=== PATIENT | male | born 1950 | race Caucasian/White ===

== ENCOUNTER 2019-09-30 13:32 | Emergency (ER) | payer OTHER ==
[2019-09-30 13:49] VITALS: BP 141/76; PULSE 94
[2019-09-30] MEDS ORDERED: Albuterol/Ipratropium 3.0-0.5 MG/3 ML Neb Soln NEB ONE (14:20)
--- NOTE | 2019-09-30 14:45 | CR ---
CHEST: 2 view CLINICAL HISTORY:Dyspnea COMPARISON:2016 FINDINGS: The heart size, pulmonary vascularity and hilar structures are normal. There has been previous sternotomy. There are atherosclerotic changes in the aorta. No infiltrate effusion or pneumothorax is seen. Lungs are hyperaerated IMPRESSION: No acute cardiopulmonary process. Emphysematous changes
--- NOTE | 2019-09-30 14:46 | EDM.PDOC ---
ED HPI GENERAL MEDICAL PROBLEM - General Chief Complaint: Respiratory Problem Stated Complaint: COUGH,SOB,WHEEZING Time Seen by Provider: 09/30/19 14:00 Source of Information: Reports: Patient History Limitations: Reports: No Limitations - History of Present Illness INITIAL COMMENTS - FREE TEXT/NARRATIVE: 69-year-old male with chronic COPD and emphysema, continues to smoke with increasing shortness of breath over the past 3 days. He is taking his nebulizers and inhalers but it is not helping as much as it typically does. He occasionally gets flareups like this that needs steroids. No chest pain, no fevers or chills, some scant sputum at times. He has been self isolating with his at home to avoid COVID infections. [facility] and [facility] sent him to the emergency room. Onset: Gradual Duration: Day(s): (3 to 4 days) Associated Symptoms: Reports: Cough, Shortness of Breath. Denies: Chest Pain, Fever/Chills - Related Data Allergies Allergy/AdvReac Type Severity Reaction Status Date / Time pregabalin [From Lyrica] Allergy Intermediate Pain Verified 09/30/19 13:50 lisinopril AdvReac Intermediate Cough Verified 09/30/19 13:50 Home Meds: Home Meds Albuterol/Ipratropium [Combivent Respimat] 1 puff INH QID PRN 08/23/13 [History] Furosemide 20 mg PO DAILY 08/23/13 [History] Losartan Potassium 25 mg PO DAILY 08/23/13 [History] Simvastatin 5 mg PO DAILY 08/23/13 [History] Clopidogrel [Plavix] 75 mg PO DAILY 05/05/14 [History] Budesonide [Pulmicort] 1 dose INH BID 06/16/15 [History] metFORMIN HCl [Metformin HCl] 500 mg PO QID 11/11/16 [History] Albuterol/Ipratropium [Combivent Respimat] 1 puff INH QID PRN 09/30/19 [History] Aspirin [Aspir 81] 1 tab PO DAILY 09/30/19 [History] Ipratropium [Atrovent HFA] 1 dose INH QID 09/30/19 [History] glipiZIDE [Glucotrol XL] 10 mg PO BID 09/30/19 [History] Past Medical History HEENT History: Reports: Hard of Hearing, Other (See Below) Other HEENT History: All teeth pulled Cardiovascular History: Reports: Arrhythmia, CAD, Heart Failure, High Cholesterol, Prior Cardiac Arrest, Stents Other Cardiovascular History: Been cardioverted Respiratory History: Reports: Asthma, Sleep Apnea, Other (See Below) Other Respiratory History: uses cpap Gastrointestinal History: Reports: GERD Musculoskeletal History: Reports: Back Pain, Chronic Other Musculoskeletal History: three bulging discs Neurological History: Reports: CVA Psychiatric History: Reports: Depression, PTSD Endocrine/Metabolic History: Reports: Diabetes, Type II - Infectious Disease History Infectious Disease History: Reports: Chicken Pox, Measles, Mumps - Past Surgical History Cardiovascular Surgical History: Reports: Coronary Artery Bypass GI Surgical History: Reports: Appendectomy, Colon, Colonoscopy, EGD, Hernia Repair/Other Social & Family History - Tobacco Use Smoking Status *Q: Current Some Day Smoker Years of Tobacco use: 50 Packs/Tins Daily: 0.5 - Caffeine Use Caffeine Use: Reports: Coffee - Recreational Drug Use Recreational Drug Use: No ED ROS GENERAL - Review of Systems Review Of Systems: See Below Constitutional: Reports: Malaise. Denies: Fever, Chills HEENT: Denies: Ear Pain, Throat Pain Respiratory: Reports: Shortness of Breath, Cough, Sputum Cardiovascular: Denies: Chest Pain GI/Abdominal: Denies: Abdominal Pain, Nausea, Vomiting Skin: Reports: No Symptoms Neurological: Reports: Weakness. Denies: Headache Psychiatric: Reports: No Symptoms ED EXAM, GENERAL - Physical Exam Exam: See Below Exam Limited By: No Limitations General Appearance: Alert, No Apparent Distress Throat/Mouth: Normal Inspection Head: Atraumatic Respiratory/Chest: No Respiratory Distress, Wheezing (Diffuse expiratory wheezing is heard especially when he is coughing, he has good air movement to the bases) Cardiovascular: Regular Rate, Rhythm GI/Abdominal: Other (Nontender, obese) Extremities: Normal Inspection, No Pedal Edema Neurological: Alert, Oriented Psychiatric: Normal Affect, Normal Mood Skin Exam: Warm, Dry Course - Vital Signs Last Recorded V/S: Last Vital Signs Temp 98.8 F 09/30/19 14:08 Pulse 94 09/30/19 14:08 Resp 18 09/30/19 14:08 BP 141/76 H 09/30/19 14:08 Pulse Ox 96 09/30/19 14:08 - Orders/Labs/Meds Orders: Active Orders 24 hr Category Date Time Status RT Aerosol Therapy [RC] ASDIRECTED Care 09/30/19 14:21 Active Meds: Medications Discontinued Medications Generic Name Dose Route Start Last Admin Trade Name Emiliano PRN Reason Stop Dose Admin Albuterol/Ipratropium 3 ml 09/30/19 14:20 09/30/19 14:25 Duoneb 3.0-0.5 Mg/3 Ml NEB 09/30/19 14:21 3 ml ONETIME ONE Administration Methylprednisolone Sodium Succinate 125 mg 09/30/19 14:56 09/30/19 15:01 Solu-Medrol IVPUSH 09/30/19 14:57 125 mg ONETIME ONE Administration - Re-Assessments/Exams Free Text/Narrative Re-Assessment/Exam: 09/30/19 14:46 A DuoNeb was given and then a two-view chest x-ray obtained. The two-view chest x-ray showed stability, no fluid, cardiomegaly or effusions. There is no infiltrate. A Solu-Medrol IV dose was given at 125 mg, this will be followed by 60 mg of prednisone daily for the next 5 days similar to his treatment in the past. I do not see an indication for antibiotics. He will return in the next 48 to 72 hours if not improving satisfactorily. 09/30/19 14:51 Take 6 pills of prednisone each morning with your first meal for the next 5 days. Continue your other medications as prescribed, and continue to try to avoid smoking. Return if worsening despite treatment. Departure - Departure Time of Disposition: 15:16 Disposition: Home, Self-Care 01 Clinical Impression: Acute exacerbation of chronic obstructive pulmonary disease (COPD) - Discharge Information Instructions: Chronic Obstructive Pulmonary Disease, [id number] Referrals: Funmilayo Lopez MD [Primary Care Provider] - Forms: ED Department Discharge Care Plan Goals: Continue your current medications, and take 6 pills of prednisone daily with your first meal for the next 5 days. Increase activity as tolerated and try to continue to reduce your smoking. Return anytime if worsening despite treatment. Sepsis Event Note (ED) - Evaluation Sepsis Screening Result: No Definite Risk - My Orders Last 24 Hours: My Active Orders 09/30/19 14:21 RT Aerosol Therapy [RC] ASDIRECTED - Assessment/Plan Last 24 Hours: My Active Orders 09/30/19 14:21 RT Aerosol Therapy [RC] ASDIRECTED
[2019-09-30] MEDS ORDERED: methylPREDNISolone Sodium Succinate 125 MG/2 ML SDV IVPUSH ONE (14:56)
== END 2019-09-30 15:15 | disposition home or self-care (01) ==
LOC: JP.ED 13:32
DX: J44.1 Chronic obstructive pulmonary disease with (acute) exacerbation (principal); E11.9 Type 2 diabetes mellitus without complications; F32.9 Major depressive disorder, single episode, unspecified; I25.10 Atherosclerotic heart disease of native coronary artery without angina pectoris; E78.00 Pure hypercholesterolemia, unspecified; I50.9 Heart failure, unspecified; J45.909 Unspecified asthma, uncomplicated; F17.210 Nicotine dependence, cigarettes, uncomplicated; Z79.899 Other long term (current) drug therapy; Z79.82 Long term (current) use of aspirin; Z79.84 Long term (current) use of oral hypoglycemic drugs; Z79.02 Long term (current) use of antithrombotics/antiplatelets; Z86.73 Personal history of transient ischemic attack (TIA), and cerebral infarction without residual deficits; Z88.8 Allergy status to other drugs, medicaments and biological substances; Z95.5 Presence of coronary angioplasty implant and graft
CPT/HCPCS: 71046; 94640; 96374; 99285; J2930; 99284; J7620-GY

== ENCOUNTER 2020-04-09 12:04 | Emergency (ER) | payer MEDICARE, OTHER ==
[2020-04-09 12:25] VITALS: BP 148/82; PULSE 94
[2020-04-09] MEDS ORDERED: methylPREDNISolone Sodium Succinate 40 MG/1 ML SDV IM ONE (12:53)
--- NOTE | 2020-04-09 12:58 | EDM.PDOC ---
ED HPI GENERAL MEDICAL PROBLEM - General Chief Complaint: Respiratory Problem Stated Complaint: BREATHING ISSUES Time Seen by Provider: 04/09/20 12:47 Source of Information: Reports: Patient, RN Notes Reviewed History Limitations: Reports: No Limitations - History of Present Illness INITIAL COMMENTS - FREE TEXT/NARRATIVE: 69-year-old gentleman presents emergency department with a complaint of shortness of breath, he has known history of chronic obstructive pulmonary disease with an asthmatic component. He states he has been feeling tired for about a week initially felt better and then today it got progressively worse. Has not had no fevers he just feels tight in the chest has a cough without any sputum production, he states his breathing treatments have helped but it only lasts for an hour or so, states he gets something like this about once a year in the winter - Related Data Allergies Allergy/AdvReac Type Severity Reaction Status Date / Time pregabalin [From Lyrica] Allergy Intermediate Pain Verified 04/09/20 12:27 lisinopril AdvReac Intermediate Cough Verified 04/09/20 12:27 Home Meds: Home Meds Furosemide 20 mg PO DAILY 08/23/13 [History] Losartan Potassium 25 mg PO DAILY 08/23/13 [History] Simvastatin 5 mg PO DAILY 08/23/13 [History] Clopidogrel [Plavix] 75 mg PO DAILY 05/05/14 [History] metFORMIN HCl [Metformin HCl] 500 mg PO QID 11/11/16 [History] Albuterol/Ipratropium [Combivent Respimat] 1 puff INH QID PRN 09/30/19 [History] Aspirin [Aspir 81] 1 tab PO DAILY 09/30/19 [History] glipiZIDE [Glucotrol XL] 10 mg PO BID 09/30/19 [History] Budesonide/Formoterol [Symbicort 160-4.5 MCG] 2 inh INH BID 04/09/20 [History] Past Medical History HEENT History: Reports: Hard of Hearing, Other (See Below) Other HEENT History: All teeth pulled Cardiovascular History: Reports: Arrhythmia, CAD, Heart Failure, High Cholesterol, Prior Cardiac Arrest, Stents Other Cardiovascular History: Been cardioverted Respiratory History: Reports: Asthma, Sleep Apnea, Other (See Below) Other Respiratory History: uses cpap Gastrointestinal History: Reports: GERD Musculoskeletal History: Reports: Back Pain, Chronic Other Musculoskeletal History: three bulging discs Neurological History: Reports: CVA, Neuropathy, Diabetic Psychiatric History: Reports: Depression, PTSD Endocrine/Metabolic History: Reports: Diabetes, Type II - Infectious Disease History Infectious Disease History: Reports: Chicken Pox, Measles, Mumps - Past Surgical History Cardiovascular Surgical History: Reports: Coronary Artery Bypass GI Surgical History: Reports: Appendectomy, Colon, Colonoscopy, EGD, Hernia Repair/Other Other GI Surgeries/Procedures: nicked bowel Social & Family History - Tobacco Use Tobacco Use Status *Q: Former Tobacco User Years of Tobacco use: 54 Used Tobacco, but Quit: Yes Month/Year Tobacco Last Used: 04/08/2020 - Caffeine Use Caffeine Use: Reports: Coffee - Recreational Drug Use Recreational Drug Use: No ED ROS GENERAL - Review of Systems Review Of Systems: See Below Constitutional: Denies: Fever, Diaphoresis HEENT: Reports: No Symptoms Respiratory: Reports: Shortness of Breath, Cough. Denies: Sputum Cardiovascular: Reports: Dyspnea on Exertion. Denies: Chest Pain GI/Abdominal: Reports: No Symptoms ED EXAM, GENERAL - Physical Exam Exam: See Below Exam Limited By: No Limitations General Appearance: Alert, No Apparent Distress Head: Atraumatic, Normocephalic Neck: Normal Inspection, Supple, Non-Tender, Full Range of Motion Respiratory/Chest: No Accessory Muscle Use, Decreased Breath Sounds, Wheezing Cardiovascular: Regular Rate, Rhythm, No Murmur GI/Abdominal: Soft, Non-Tender Back Exam: Normal Inspection, Full Range of Motion. No: CVA Tenderness (R), CVA Tenderness (L) Extremities: No Pedal Edema Course - Vital Signs Last Recorded V/S: Last Vital Signs Temp 98.2 F 04/09/20 12:40 Pulse 94 04/09/20 12:40 Resp 20 04/09/20 12:40 BP 148/82 H 04/09/20 12:40 Pulse Ox 95 04/09/20 12:40 - Orders/Labs/Meds Meds: Medications Discontinued Medications Generic Name Dose Route Start Last Admin Trade Name Freq PRN Reason Stop Dose Admin Methylprednisolone Sodium Succinate 40 mg 04/09/20 12:53 Solu-Medrol IM 04/09/20 12:54 ONETIME ONE Departure - Departure Time of Disposition: 12:57 Disposition: Home, Self-Care 01 Condition: Fair Clinical Impression: Acute exacerbation of chronic obstructive pulmonary disease (COPD) - Discharge Information Instructions: Chronic Obstructive Pulmonary Disease Exacerbation, [id number] Referrals: Funmilayo Lopez MD [Primary Care Provider] - Additional Instructions: Take full course of antibiotics start today, start your prednisone tomorrow this will continue for 10 days, please followup with your primary care provider in 5-7 days if not better, please call return to the emergency department with worsening of symptoms., Sepsis Event Note (ED) - Evaluation Sepsis Screening Result: No Definite Risk - Focused Exam Vital Signs: Vital Signs Temp Pulse Resp BP Pulse Ox 04/09/20 12:40 98.2 F 94 20 148/82 H 95 04/09/20 12:24 98.2 F 94 20 148/82 H 95 - Assessment/Plan Plan: Assessment Acuity = acute Site and laterality = COPD exacerbation Etiology = unknown Manifestations = cough, dyspnea Location of injury = Home Lab values = none Plan Elected to treat empirically was given 40 mg Solu-Medrol IM x1 followed by a taper dose of prednisone starting tomorrow 40 mg for 3 days 30 mg for 3 days 20 for 2 days and 10 for 2 days, prescription written also for azithromycin 5-day course follow-up primary care 5 to 7 days if not better This note was dictated using [employer] voice recognition software please call with any questions on syntax or grammar.
== END 2020-04-09 13:12 | disposition home or self-care (01) ==
LOC: JP.ED 12:04
DX: J44.1 Chronic obstructive pulmonary disease with (acute) exacerbation (principal); I25.10 Atherosclerotic heart disease of native coronary artery without angina pectoris; I50.9 Heart failure, unspecified; E78.00 Pure hypercholesterolemia, unspecified; K21.9 Gastro-esophageal reflux disease without esophagitis; E11.40 Type 2 diabetes mellitus with diabetic neuropathy, unspecified; Z86.73 Personal history of transient ischemic attack (TIA), and cerebral infarction without residual deficits; Z87.891 Personal history of nicotine dependence; Z88.8 Allergy status to other drugs, medicaments and biological substances; Z79.82 Long term (current) use of aspirin; Z79.899 Other long term (current) drug therapy; Z79.02 Long term (current) use of antithrombotics/antiplatelets
CPT/HCPCS: 96372; 99283; 99284; J2920

== ENCOUNTER 2020-10-09 11:17 | Emergency (ER) | payer OTHER, MEDICARE ==
[2020-10-09 11:32] VITALS: BP 137/80; PULSE 97
[2020-10-09] MEDS ORDERED: methylPREDNISolone Sodium Succinate 40 MG/1 ML SDV IM ONE (11:36)
--- NOTE | 2020-10-09 11:42 | EDM.PDOC ---
ED HPI GENERAL MEDICAL PROBLEM - General Chief Complaint: Respiratory Problem Stated Complaint: ASTHMA ATTACK Time Seen by Provider: 10/09/20 11:30 Source of Information: Reports: Patient, Old Records, RN History Limitations: Reports: No Limitations - History of Present Illness INITIAL COMMENTS - FREE TEXT/NARRATIVE: Patient comes in with what he feels is an exacerbation of his COPD. He feels this started yesterday after walking his dog. He has done well to stay inside the house with the recent environmental smoke concerns. He noted it was more clear yesterday and has been about a week since he had been outside. He states last night he got about "2 minutes" of sleep. He has been uncomfortable coughing cannot get anything up. He has a chronic history of COPD. He knows his symptoms well and what works for him. He does have a emergent Z-Tavo at home but did not feel this was appropriate as he did not feel like it was a bacterial source. He has been using his nebulizers at home which is given him about 20 minutes of relief. 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: Other (see below) (Nebulizers and COPD medications) - Related Data Allergies Allergy/AdvReac Type Severity Reaction Status Date / Time pregabalin [From Lyrica] Allergy Intermediate Pain Verified 04/09/20 12:27 lisinopril AdvReac Intermediate Cough Verified 04/09/20 12:27 Home Meds: Home Meds Furosemide 20 mg PO DAILY 08/23/13 [History] Losartan Potassium 25 mg PO DAILY 08/23/13 [History] Simvastatin 5 mg PO DAILY 08/23/13 [History] Clopidogrel [Plavix] 75 mg PO DAILY 05/05/14 [History] metFORMIN HCl [Metformin HCl] 500 mg PO QID 11/11/16 [History] Albuterol/Ipratropium [Combivent Respimat] 1 puff INH QID PRN 09/30/19 [History] Aspirin [Aspir 81] 1 tab PO DAILY 09/30/19 [History] glipiZIDE [Glucotrol XL] 10 mg PO BID 09/30/19 [History] Budesonide/Formoterol [Symbicort 160-4.5 MCG] 2 inh INH BID 04/09/20 [History] Past Medical History HEENT History: Reports: Hard of Hearing, Other (See Below) Other HEENT History: All teeth pulled Cardiovascular History: Reports: Arrhythmia, CAD, Heart Failure, High Cholesterol, Prior Cardiac Arrest, Stents Other Cardiovascular History: Been cardioverted Respiratory History: Reports: Asthma, Sleep Apnea, Other (See Below) Other Respiratory History: uses cpap Gastrointestinal History: Reports: GERD Musculoskeletal History: Reports: Back Pain, Chronic Other Musculoskeletal History: three bulging discs Neurological History: Reports: CVA, Neuropathy, Diabetic Psychiatric History: Reports: Depression, PTSD Endocrine/Metabolic History: Reports: Diabetes, Type II - Infectious Disease History Infectious Disease History: Reports: Chicken Pox, Measles, Mumps - Past Surgical History Cardiovascular Surgical History: Reports: Coronary Artery Bypass GI Surgical History: Reports: Appendectomy, Colon, Colonoscopy, EGD, Hernia Repair/Other Other GI Surgeries/Procedures: nicked bowel Social & Family History - Tobacco Use Tobacco Use Status *Q: Current Every Day Tobacco User Years of Tobacco use: 60 Packs/Tins Daily: 0.5 - Caffeine Use Caffeine Use: Reports: Coffee - Recreational Drug Use Recreational Drug Use: No ED ROS GENERAL - Review of Systems Review Of Systems: See Below Constitutional: Reports: Fatigue HEENT: Reports: No Symptoms Respiratory: Reports: Shortness of Breath, Cough Cardiovascular: Reports: No Symptoms Endocrine: Reports: No Symptoms GI/Abdominal: Reports: No Symptoms : Reports: No Symptoms Musculoskeletal: Reports: No Symptoms Skin: Reports: No Symptoms Neurological: Reports: No Symptoms Psychiatric: Reports: No Symptoms ED EXAM, GENERAL - Physical Exam Exam: See Below Exam Limited By: No Limitations General Appearance: Alert, Moderate Distress Respiratory/Chest: Respiratory Distress. No: No Respiratory Distress Cardiovascular: Normal Peripheral Pulses, Regular Rate, Rhythm, No Edema Extremities: Normal Inspection, Normal Range of Motion Neurological: Alert, Oriented, CN II-XII Intact, Normal Cognition Psychiatric: Normal Affect, Normal Mood Course - Vital Signs Last Recorded V/S: Last Vital Signs Temp 36.4 C 10/09/20 11:33 Pulse 97 10/09/20 11:33 Resp 19 10/09/20 11:33 BP 137/80 10/09/20 11:33 Pulse Ox 94 L 10/09/20 11:33 - Orders/Labs/Meds Meds: Medications Discontinued Medications Generic Name Dose Route Start Last Admin Trade Name Emiliano PRAtul Reason Stop Dose Admin Methylprednisolone Sodium Succinate 40 mg 10/09/20 11:36 10/09/20 11:43 Methylprednisolone Sodium Succinate 40 Mg/1 Ml Sdv IM 10/09/20 11:37 40 mg ONETIME ONE Administration Solu-Medrol given IM as this has worked in the past for him. - Re-Assessments/Exams Free Text/Narrative Re-Assessment/Exam: 10/09/20 11:56 Patient states improvement with Solu-Medrol. He notes decreased swelling and ease of breathing. Will provide prednisone taper to be utilized over the next 10 days. If in the next 2 to 3 days he has not significantly better or showing improvement he is to return to the clinic or ER for further evaluation. He is instructed if he starts showing signs of infection including changes in the color of his sputum he is to start his Z-Tavo that he has at home. Departure - Departure Time of Disposition: 12:04 Disposition: Home, Self-Care 01 Condition: Fair Clinical Impression: Acute exacerbation of chronic obstructive pulmonary disease (COPD) - Discharge Information Instructions: Chronic Obstructive Pulmonary Disease, [id number] Referrals: PCP,None [Primary Care Provider] - Forms: ED Department Discharge Additional Instructions: Start Prednisone taper in AM. If not better or improving over next 2-3 days return to clinic/ER for further evaluation. Sepsis Event Note (ED) - Evaluation Sepsis Screening Result: No Definite Risk - Focused Exam Vital Signs: Vital Signs Temp Pulse Resp BP Pulse Ox 10/09/20 11:33 36.4 C 97 19 137/80 94 L 10/09/20 11:30 36.4 C 97 19 137/80 94 L - Problem List Review Problem List Initiated/Reviewed/Updated: Yes - Assessment/Plan Assessment:: Acute exacerbation of COPD Plan: Solu-Medrol provided at visit with improvement noted by patient. Prednisone taper over next 10 days. Plan for patient to return to clinic if noted improvement does not happen over the next 2 to 3 days or he has a change in his status. Patient to follow-up with primary care provider in the next 5 to 7 days
== END 2020-10-09 12:05 | disposition home or self-care (01) ==
LOC: JP.ED 11:17
DX: J44.1 Chronic obstructive pulmonary disease with (acute) exacerbation (principal); I25.10 Atherosclerotic heart disease of native coronary artery without angina pectoris; I11.0 Hypertensive heart disease with heart failure; I50.9 Heart failure, unspecified; E78.00 Pure hypercholesterolemia, unspecified; E11.40 Type 2 diabetes mellitus with diabetic neuropathy, unspecified; Z86.73 Personal history of transient ischemic attack (TIA), and cerebral infarction without residual deficits; Z79.02 Long term (current) use of antithrombotics/antiplatelets; Z79.84 Long term (current) use of oral hypoglycemic drugs; Z79.82 Long term (current) use of aspirin; Z79.899 Other long term (current) drug therapy; Z88.8 Allergy status to other drugs, medicaments and biological substances; Z72.0 Tobacco use
CPT/HCPCS: 96372; 99284; J2920

== ENCOUNTER 2020-10-30 09:15 | Day surgery (SDC) | payer MEDICARE, OTHER ==
[~2020-10-30 09:15] MED LIST: Midazolam 1 MG/ML 2 ML SDV ONE; Propofol 200 MG/20 ML SDV ONE; fentaNYL 100 MCG/2 ML SDV ONE
[2020-10-30] MEDS ORDERED: Sodium Chloride 0.9% 1,000 ML IV SCH (10:00)
[2020-10-30] MEDS ORDERED: Propofol 200 MG/20 ML SDV ONE (10:26)
[2020-10-30 11:25] VITALS: BP 120/71; PULSE 71
--- NOTE | 2020-10-30 15:01 | OR ---
DATE OF PROCEDURE: 10/30/2020 SURGEON: Heriberto Eaton MD PROCEDURE: Colonoscopy. FINDINGS: 1. Sigmoid colon polyp, approximately 5 mm, completely removed using cold biopsy forceps. 2. Mildly tortuous sigmoid colon. PREOPERATIVE DIAGNOSIS: Family history of colorectal cancer. POSTOPERATIVE DIAGNOSIS: Family history of colorectal cancer. RISKS: Risks, benefits, alternatives, and limitations including, but not limited to infection, bleeding, perforation, false positives, and false negatives were explained to the patient and he wished to proceed. PROCEDURE IN DETAIL: The patient was placed in left lateral decubitus position. Digital rectal exam was performed without abnormality. Scope was introduced and advanced atraumatically to the ileocecal valve. A photo was taken of appendiceal orifice. Scope was brought back to the ascending, transverse, descending colon, and retroflexed. No evidence of old or new blood. No masses. No colitis. Greater than 8 minutes was spent removing the scope. The prep was acceptable, approximately 90% of the luminal surface could be seen. The patient tolerated the procedure well. Heriberto Eaton MD /[id number]
== END 2020-10-30 11:50 | disposition home or self-care (01) ==
LOC: JP.SDS 09:15
PROVIDERS: ATTEND Surgery
DX: Z12.11 Encounter for screening for malignant neoplasm of colon (principal); K63.5 Polyp of colon; K63.89 Other specified diseases of intestine; J44.9 Chronic obstructive pulmonary disease, unspecified; I10 Essential (primary) hypertension; E78.5 Hyperlipidemia, unspecified; E11.9 Type 2 diabetes mellitus without complications; F17.200 Nicotine dependence, unspecified, uncomplicated; Z86.73 Personal history of transient ischemic attack (TIA), and cerebral infarction without residual deficits; K21.9 Gastro-esophageal reflux disease without esophagitis; Z80.0 Family history of malignant neoplasm of digestive organs; Z88.8 Allergy status to other drugs, medicaments and biological substances
CPT/HCPCS: 45380; J2250; J2704; J3010; J7030

== ENCOUNTER 2020-11-14 07:24 | Emergency (ER) | payer OTHER, MEDICARE ==
[2020-11-14 07:40] VITALS: BP 158/72; PULSE 72
[2020-11-14] MEDS ORDERED: Albuterol/Ipratropium 3.0-0.5 MG/3 ML Neb Soln NEB ONE (07:58)
[2020-11-14] MEDS ORDERED: methylPREDNISolone Sodium Succinate 125 MG/2 ML SDV IVPUSH ONE (07:58)
--- NOTE | 2020-11-14 08:07 | EDM.PDOC ---
ED HPI GENERAL MEDICAL PROBLEM - General Chief Complaint: Respiratory Problem Stated Complaint: CANT BREATHE Time Seen by Provider: 11/14/20 07:40 Source of Information: Reports: Patient History Limitations: Reports: No Limitations - History of Present Illness INITIAL COMMENTS - FREE TEXT/NARRATIVE: 70-year-old male with known COPD, typically gets flares a couple times a year. Over the past several days has had increased shortness of breath and increased wheezing not responding to his nebulizers. He was just checked for Covid last week prior to a procedure and it was negative. He has had no fevers or chills, did have some leftover Zithromax and took that it did not help. He usually needs steroids to get him through these flareups. Denies nausea or vomiting, no chest pain. Onset: Gradual Duration: Day(s): (Symptoms increased for the last 3 to 5 days) Associated Symptoms: Reports: Cough, Malaise, Shortness of Breath. Denies: Chest Pain, Fever/Chills, Loss of Appetite, Nausea/Vomiting, Weakness - Related Data Allergies Allergy/AdvReac Type Severity Reaction Status Date / Time pregabalin [From Lyrica] Allergy Intermediate Pain Verified 11/14/20 07:36 methicillin Allergy Other Verified 11/14/20 07:36 lisinopril AdvReac Intermediate Cough Verified 11/14/20 07:36 Home Meds: Home Meds Furosemide 20 mg PO DAILY 08/23/13 [History] Losartan Potassium 25 mg PO DAILY 08/23/13 [History] Simvastatin 5 mg PO DAILY 08/23/13 [History] Clopidogrel [Plavix] 75 mg PO DAILY 05/05/14 [History] metFORMIN HCl [Metformin HCl] 500 mg PO QID 11/11/16 [History] Albuterol/Ipratropium [Combivent Respimat] 1 puff INH QID 09/30/19 [History] glipiZIDE [Glucotrol XL] 10 mg PO BID 09/30/19 [History] Budesonide/Formoterol [Symbicort 160-4.5 MCG] 2 inh INH BID 04/09/20 [History] Aspirin 81 mg PO DAILY 10/26/20 [History] Budesonide [Pulmicort] 0.5 mg NEB BID 10/26/20 [History] Metoprolol Succinate [Toprol XL] 25 mg PO DAILY 10/26/20 [History] Nitroglycerin 0.4 mg SL ASDIRECTED PRN 10/26/20 [History] Past Medical History HEENT History: Reports: Cataract, Glaucoma, Hard of Hearing, Impaired Vision, Other (See Below) Other HEENT History: All teeth pulled Cardiovascular History: Reports: Arrhythmia, CAD, Heart Failure, High Cholesterol, Hypertension, Stents Other Cardiovascular History: Been cardioverted Respiratory History: Reports: Asthma, Sleep Apnea, Other (See Below) Other Respiratory History: uses cpap Gastrointestinal History: Reports: Colon Polyp, GERD Musculoskeletal History: Reports: Back Pain, Chronic, Fracture Other Musculoskeletal History: three bulging discs Neurological History: Reports: CVA, Neuropathy, Diabetic Psychiatric History: Reports: Depression, PTSD Endocrine/Metabolic History: Reports: Diabetes, Type II, Obesity/BMI 30+ Hematologic History: Reports: Anticoagulation Therapy - Infectious Disease History Infectious Disease History: Reports: Chicken Pox, Measles, MRSA, Mumps - Past Surgical History Head Surgeries/Procedures: Reports: None HEENT Surgical History: Reports: None Cardiovascular Surgical History: Reports: Coronary Artery Bypass Respiratory Surgical History: Reports: None GI Surgical History: Reports: Appendectomy, Colon, Colonoscopy, Colostomy, EGD, Hernia Repair/Other Other GI Surgeries/Procedures: nicked bowel Endocrine Surgical History: Reports: None Neurological Surgical History: Reports: None Musculoskeletal Surgical History: Reports: Other (See Below) Other Musculoskeletal Surgeries/Procedures:: right leg surgery 2018 ended up with MRSA Dermatological Surgical History: Reports: None Social & Family History - Tobacco Use Tobacco Use Status *Q: Current Every Day Tobacco User Years of Tobacco use: 50 Packs/Tins Daily: 0.2 Used Tobacco, but Quit: No Second Hand Smoke Exposure: Yes - Caffeine Use Caffeine Use: Reports: Coffee - Recreational Drug Use Recreational Drug Use: No ED ROS GENERAL - Review of Systems Review Of Systems: See Below Constitutional: Reports: Malaise. Denies: Fever, Chills HEENT: Denies: Throat Pain Respiratory: Reports: Shortness of Breath, Cough. Denies: Sputum Cardiovascular: Denies: Chest Pain, Palpitations GI/Abdominal: Denies: Abdominal Pain, Nausea, Vomiting : Reports: No Symptoms Musculoskeletal: Reports: No Symptoms Skin: Reports: No Symptoms Neurological: Denies: Dizziness, Headache ED EXAM, GENERAL - Physical Exam Exam: See Below Exam Limited By: No Limitations General Appearance: Alert, No Apparent Distress, Other (Looks uncomfortable but in no respiratory distress, O2 sats are 96% and respiratory rate 18) Eye Exam: Bilateral Eye: Normal Inspection Head: Atraumatic Neck: Non-Tender Respiratory/Chest: Wheezing (Scattered expiratory wheezes are heard but underlying good air movement is present, no rales or rhonchi) Cardiovascular: Regular Rate, Rhythm. No: Tachycardia Extremities: Normal Inspection. No: Pedal Edema Neurological: Alert, Oriented Psychiatric: Normal Affect, Normal Mood Skin Exam: Warm, Dry Course - Vital Signs Last Recorded V/S: Last Vital Signs Temp 96.4 F L 11/14/20 07:40 Pulse 72 11/14/20 07:40 Resp 18 11/14/20 07:40 BP 158/72 H 11/14/20 07:40 Pulse Ox 96 11/14/20 07:40 - Orders/Labs/Meds Meds: Medications Discontinued Medications Generic Name Dose Route Start Last Admin Trade Name Freq PRN Reason Stop Dose Admin Albuterol/Ipratropium 3 ml 11/14/20 07:58 11/14/20 08:06 Albuterol/Ipratropium 3.0-0.5 Mg/3 Ml Neb Soln NEB 11/14/20 07:59 3 ml ONETIME ONE Administration Methylprednisolone Sodium Succinate 125 mg 11/14/20 07:58 11/14/20 08:06 Methylprednisolone Sodium Succinate 125 Mg/2 Ml Sdv IVPUSH 11/14/20 07:59 125 mg ONETIME ONE Administration - Re-Assessments/Exams Free Text/Narrative Re-Assessment/Exam: 11/14/20 08:06 Patient was given an Atrovent DuoNeb, and IV was started and he will be given 125 mg of IV Solu-Medrol. He will need a tapering dose of prednisone which he has responded to well in the past. 11/14/20 08:22 After the DuoNeb the patient felt moderately better subjectively but sounded significantly better objectively with much less wheezing. He was put on a tapering steroid program starting at 40 mg daily which he can start later today. Return anytime if worsening despite treatment. Departure - Departure Time of Disposition: 08:37 Disposition: Home, Self-Care 01 Clinical Impression: Acute exacerbation of chronic obstructive pulmonary disease (COPD) - Discharge Information Instructions: Chronic Obstructive Pulmonary Disease Exacerbation, [id number] Referrals: Funmilayo Lopez MD [Primary Care Provider] - Forms: ED Department Discharge Care Plan Goals: Take tapering prednisone as prescribed, starting with 40 mg this evening with supper. Then take each dose each morning with breakfast until gone. Return to the emergency room anytime if not improving satisfactorily after a few days or sooner if worsening despite treatment. Sepsis Event Note (ED) - Focused Exam Vital Signs: Vital Signs Temp Pulse Resp BP Pulse Ox 11/14/20 07:40 96.4 F L 72 18 158/72 H 96 11/14/20 07:39 96.4 F L 72 18 158/72 H 96
== END 2020-11-14 08:37 | disposition home or self-care (01) ==
LOC: JP.ED 07:24
DX: J44.1 Chronic obstructive pulmonary disease with (acute) exacerbation (principal); I11.0 Hypertensive heart disease with heart failure; I50.9 Heart failure, unspecified; E11.9 Type 2 diabetes mellitus without complications; E78.00 Pure hypercholesterolemia, unspecified; I25.10 Atherosclerotic heart disease of native coronary artery without angina pectoris; E66.9 Obesity, unspecified; Z68.39 Body mass index [BMI] 39.0-39.9, adult; Z79.01 Long term (current) use of anticoagulants; Z79.82 Long term (current) use of aspirin; Z79.899 Other long term (current) drug therapy; Z79.84 Long term (current) use of oral hypoglycemic drugs; Z72.0 Tobacco use
CPT/HCPCS: 94640; 96374; 99284; J2930; J7620-GY

== ENCOUNTER 2021-02-23 08:26 | Emergency (ER) | payer OTHER, MEDICARE ==
[2021-02-23 09:23] LABS: CORONAVIRUS COVID-19 NAA NEGATIVE (NEGATIVE)
[2021-02-23] MEDS ORDERED: methylPREDNISolone Sodium Succinate 125 MG/2 ML SDV IM ONE (09:36)
--- NOTE | 2021-02-23 09:42 | EDM.PDOC ---
ED HPI GENERAL MEDICAL PROBLEM - General Chief Complaint: Respiratory Problem Stated Complaint: SOB Time Seen by Provider: 02/23/21 09:28 Source of Information: Reports: Patient, Old Records, RN Notes Reviewed History Limitations: Reports: No Limitations - History of Present Illness INITIAL COMMENTS - FREE TEXT/NARRATIVE: 70-year-old gentleman presents emergency department day complaint shortness of breath he has known history of COPD he states he has been getting worse over the last couple of days short of breath cough no sputum production feels his chest is tight. He has been off his tobacco now for 2 days no fevers he is had first dose of Covid vaccine - Related Data Allergies Allergy/AdvReac Type Severity Reaction Status Date / Time pregabalin [From Lyrica] Allergy Intermediate Pain Verified 02/23/21 08:50 methicillin Allergy Other Verified 02/23/21 08:50 lisinopril AdvReac Intermediate Cough Verified 02/23/21 08:50 Home Meds: Home Meds Furosemide 20 mg PO DAILY 08/23/13 [History] Losartan Potassium 25 mg PO DAILY 08/23/13 [History] Simvastatin 5 mg PO DAILY 08/23/13 [History] Clopidogrel [Plavix] 75 mg PO DAILY 05/05/14 [History] metFORMIN HCl [Metformin HCl] 500 mg PO QID 11/11/16 [History] Albuterol/Ipratropium [Combivent Respimat] 1 puff INH QID 09/30/19 [History] glipiZIDE [Glucotrol XL] 10 mg PO BID 09/30/19 [History] Budesonide/Formoterol [Symbicort 160-4.5 MCG] 2 inh INH BID 04/09/20 [History] Aspirin 81 mg PO DAILY 10/26/20 [History] Budesonide [Pulmicort] 0.5 mg NEB BID 10/26/20 [History] Metoprolol Succinate [Toprol XL] 25 mg PO DAILY 10/26/20 [History] Nitroglycerin 0.4 mg SL ASDIRECTED PRN 10/26/20 [History] Past Medical History HEENT History: Reports: Cataract, Glaucoma, Hard of Hearing, Impaired Vision, Other (See Below) Other HEENT History: All teeth pulled Cardiovascular History: Reports: Arrhythmia, CAD, Heart Failure, High Cholesterol, Hypertension, Stents Other Cardiovascular History: Been cardioverted Respiratory History: Reports: Asthma, COPD, Sleep Apnea, Other (See Below) Other Respiratory History: uses cpap Gastrointestinal History: Reports: Colon Polyp, GERD Musculoskeletal History: Reports: Back Pain, Chronic, Fracture Other Musculoskeletal History: three bulging discs Neurological History: Reports: CVA, Neuropathy, Diabetic Psychiatric History: Reports: Depression, PTSD Endocrine/Metabolic History: Reports: Diabetes, Type II, Obesity/BMI 30+ Hematologic History: Reports: Anticoagulation Therapy - Infectious Disease History Infectious Disease History: Reports: Chicken Pox, Measles, MRSA, Mumps - Past Surgical History Head Surgeries/Procedures: Reports: None Cardiovascular Surgical History: Reports: Coronary Artery Bypass GI Surgical History: Reports: Appendectomy, Colon, Colonoscopy, Colostomy, EGD, Hernia Repair/Other Other GI Surgeries/Procedures: nicked bowel Musculoskeletal Surgical History: Reports: Other (See Below) Other Musculoskeletal Surgeries/Procedures:: right leg surgery 2018 ended up with MRSA Social & Family History - Tobacco Use Tobacco Use Status *Q: Light Tobacco User Years of Tobacco use: 50 Packs/Tins Daily: 0.3 - Caffeine Use Caffeine Use: Reports: Coffee - Recreational Drug Use Recreational Drug Use: No ED ROS GENERAL - Review of Systems Review Of Systems: See Below Constitutional: Denies: Fever, Chills Respiratory: Reports: Shortness of Breath, Cough. Denies: Sputum Cardiovascular: Reports: Dyspnea on Exertion GI/Abdominal: Reports: No Symptoms ED EXAM, GENERAL - Physical Exam Exam: See Below Exam Limited By: No Limitations General Appearance: Alert, WD/WN, No Apparent Distress Respiratory/Chest: No Respiratory Distress, Chest Non-Tender, Decreased Breath Sounds, Wheezing Cardiovascular: Regular Rate, Rhythm, No Murmur Course - Vital Signs Last Recorded V/S: Last Vital Signs Temp 98.3 F 02/23/21 08:47 Pulse 103 H 02/23/21 08:47 Resp 20 02/23/21 08:47 BP 142/73 H 02/23/21 08:47 Pulse Ox 95 02/23/21 08:47 - Orders/Labs/Meds Orders: Active Orders 24 hr Category Date Time Status Isolation [COMM] Stat Oth 02/23/21 08:33 Ordered Labs: Laboratory Tests 02/23/21 Range/Units 08:33 Influenza Type A RNA Negative (NEGATIVE) RSV RNA (INAAT) Negative (NEGATIVE) Influenza Type B RNA Negative (NEGATIVE) SARS-CoV-2 RNA (ALICE) Negative (NEGATIVE) Meds: Medications Discontinued Medications Generic Name Dose Route Start Last Admin Trade Name Emiliano PRN Reason Stop Dose Admin Methylprednisolone Sodium Succinate 125 mg 02/23/21 09:36 Methylprednisolone Sodium Succinate 125 Mg/2 Ml Sdv IM 02/23/21 09:37 ONETIME ONE Departure - Departure Time of Disposition: 09:41 Disposition: Home, Self-Care 01 Condition: Fair Clinical Impression: Acute exacerbation of chronic obstructive pulmonary disease (COPD) Acute bronchitis Qualifiers: Bronchitis organism: unspecified organism Qualified Code(s): J20.9 - Acute bronchitis, unspecified - Discharge Information Instructions: Chronic Obstructive Pulmonary Disease Exacerbation, [id number] Referrals: Funmilayo Lopez MD [Primary Care Provider] - Additional Instructions: Take full course of antibiotics, take the full course of the prednisone taper please followup with your primary care provider in 7-10 days if not better, please call return to the emergency department with worsening of symptoms., Sepsis Event Note (ED) - Evaluation Sepsis Screening Result: No Definite Risk - Focused Exam Vital Signs: Vital Signs Temp Pulse Resp BP Pulse Ox 02/23/21 08:47 98.3 F 103 H 20 142/73 H 95 - My Orders Last 24 Hours: My Active Orders 02/23/21 08:33 Isolation [COMM] Stat - Assessment/Plan Last 24 Hours: My Active Orders 02/23/21 08:33 Isolation [COMM] Stat Plan: Assessment Acuity = acute Site and laterality = COPD bronchitis exacerbation Etiology = unknown Manifestations = none Location of injury = Home Lab values = Covid negative, influenza negative, RSV negative Plan Elected to treat empirically doxycycline 100 mg p.o. twice daily x7 days, he was given 1 dose of Solu-Medrol here and then set up on a long steroid taper of prednisone This note was dictated using [employer] voice recognition software please call with any questions on syntax or grammar.
[2021-02-23 09:54] VITALS: BP 117/63; PULSE 83
== END 2021-02-23 10:10 | disposition home or self-care (01) ==
LOC: JP.ED 08:26
DX: J20.9 Acute bronchitis, unspecified (principal); J44.0 Chronic obstructive pulmonary disease with (acute) lower respiratory infection; J44.1 Chronic obstructive pulmonary disease with (acute) exacerbation; I25.10 Atherosclerotic heart disease of native coronary artery without angina pectoris; I11.0 Hypertensive heart disease with heart failure; E78.00 Pure hypercholesterolemia, unspecified; K21.9 Gastro-esophageal reflux disease without esophagitis; E11.9 Type 2 diabetes mellitus without complications; E66.9 Obesity, unspecified; Z68.33 Body mass index [BMI] 33.0-33.9, adult; Z72.0 Tobacco use; Z95.5 Presence of coronary angioplasty implant and graft; Z88.0 Allergy status to penicillin; Z88.8 Allergy status to other drugs, medicaments and biological substances; Z79.02 Long term (current) use of antithrombotics/antiplatelets; Z79.899 Other long term (current) drug therapy; Z20.822 Contact with and (suspected) exposure to COVID-19
CPT/HCPCS: 0241U; 96372; 99284; J2930

== ENCOUNTER 2021-03-14 08:56 | Emergency (ER) | payer OTHER, MEDICARE ==
[2021-03-14 09:07] VITALS: BP 136/82; PULSE 100
[2021-03-14] MEDS ORDERED: Ketorolac 30 MG/ML SDV IM ONE (09:26)
[2021-03-15] MEDS ORDERED: valACYclovir 1,000 MG Tab PO ONE (09:25)
== END 2021-03-14 10:32 | disposition home or self-care (01) ==
LOC: JP.ED 08:56
DX: B02.9 Zoster without complications (principal); I25.10 Atherosclerotic heart disease of native coronary artery without angina pectoris; E78.00 Pure hypercholesterolemia, unspecified; J44.9 Chronic obstructive pulmonary disease, unspecified; E66.9 Obesity, unspecified; I11.0 Hypertensive heart disease with heart failure; I50.9 Heart failure, unspecified; E11.40 Type 2 diabetes mellitus with diabetic neuropathy, unspecified; Z72.0 Tobacco use; Z88.8 Allergy status to other drugs, medicaments and biological substances; Z88.1 Allergy status to other antibiotic agents; Z79.899 Other long term (current) drug therapy; Z79.02 Long term (current) use of antithrombotics/antiplatelets; Z79.84 Long term (current) use of oral hypoglycemic drugs; Z79.82 Long term (current) use of aspirin; Z68.33 Body mass index [BMI] 33.0-33.9, adult
CPT/HCPCS: 74176; 96372; 99284; A9270; J1885

== ENCOUNTER 2021-06-14 09:18 | Emergency (ER) | payer OTHER, MEDICARE ==
[2021-06-14 09:34] VITALS: BP 149/90
[2021-06-14] MEDS ORDERED: methylPREDNISolone Sodium Succinate 125 MG/2 ML SDV IVPUSH ONE (10:06)
[2021-06-14 10:37] VITALS: PULSE 70
== END 2021-06-14 10:37 | disposition home or self-care (01) ==
LOC: JP.ED 09:18
DX: J44.1 Chronic obstructive pulmonary disease with (acute) exacerbation (principal); I25.10 Atherosclerotic heart disease of native coronary artery without angina pectoris; E78.00 Pure hypercholesterolemia, unspecified; I11.0 Hypertensive heart disease with heart failure; I50.9 Heart failure, unspecified; E11.40 Type 2 diabetes mellitus with diabetic neuropathy, unspecified; E66.9 Obesity, unspecified; Z68.30 Body mass index [BMI] 30.0-30.9, adult; Z86.73 Personal history of transient ischemic attack (TIA), and cerebral infarction without residual deficits; Z95.1 Presence of aortocoronary bypass graft; Z88.0 Allergy status to penicillin; Z88.8 Allergy status to other drugs, medicaments and biological substances; Z79.82 Long term (current) use of aspirin; Z79.84 Long term (current) use of oral hypoglycemic drugs; Z79.899 Other long term (current) drug therapy; Z72.0 Tobacco use
CPT/HCPCS: 71046; 71046-26; 96374; 99283; 99284-25; J2930

== ENCOUNTER 2021-07-28 08:23 | Emergency (ER) | payer MEDICARE, OTHER ==
[2021-07-28 08:44] VITALS: BP 135/64; PULSE 92
[2021-07-28] MEDS ORDERED: methylPREDNISolone Sodium Succinate 125 MG/2 ML SDV IM ONE (09:03)
== END 2021-07-28 09:38 | disposition home or self-care (01) ==
LOC: JP.ED 08:23
DX: J44.1 Chronic obstructive pulmonary disease with (acute) exacerbation (principal); I11.0 Hypertensive heart disease with heart failure; I50.9 Heart failure, unspecified; I25.10 Atherosclerotic heart disease of native coronary artery without angina pectoris; E78.00 Pure hypercholesterolemia, unspecified; E11.40 Type 2 diabetes mellitus with diabetic neuropathy, unspecified; E66.9 Obesity, unspecified; Z68.32 Body mass index [BMI] 32.0-32.9, adult; Z86.73 Personal history of transient ischemic attack (TIA), and cerebral infarction without residual deficits; Z90.49 Acquired absence of other specified parts of digestive tract; Z87.891 Personal history of nicotine dependence; Z79.899 Other long term (current) drug therapy; Z79.84 Long term (current) use of oral hypoglycemic drugs; Z79.82 Long term (current) use of aspirin; Z88.8 Allergy status to other drugs, medicaments and biological substances
CPT/HCPCS: 96372; 99282; 99284; J2930

== ENCOUNTER 2022-04-11 08:28 | Emergency (ER) | payer MEDICARE ==
[2022-04-11 08:39] VITALS: BP 151/73; PULSE 94
[2022-04-11] MEDS ORDERED: methylPREDNISolone Sodium Succinate 125 MG/2 ML SDV IM ONE (09:06)
== END 2022-04-11 09:26 | disposition home or self-care (01) ==
LOC: JP.ED 08:28
DX: J44.1 Chronic obstructive pulmonary disease with (acute) exacerbation (principal); J40 Bronchitis, not specified as acute or chronic; J45.909 Unspecified asthma, uncomplicated; K21.9 Gastro-esophageal reflux disease without esophagitis; Z88.0 Allergy status to penicillin; E11.40 Type 2 diabetes mellitus with diabetic neuropathy, unspecified; I11.0 Hypertensive heart disease with heart failure; I50.9 Heart failure, unspecified; E66.9 Obesity, unspecified; Z68.32 Body mass index [BMI] 32.0-32.9, adult; Z88.6 Allergy status to analgesic agent; Z88.8 Allergy status to other drugs, medicaments and biological substances; Z79.82 Long term (current) use of aspirin; Z79.02 Long term (current) use of antithrombotics/antiplatelets; Z79.84 Long term (current) use of oral hypoglycemic drugs; Z72.0 Tobacco use
CPT/HCPCS: 96372; 99284; J2930; 99283

== ENCOUNTER 2022-05-31 12:30 | Emergency (ER) | payer MEDICARE ==
[2022-05-31 12:59] VITALS: BP 105/55; PULSE 70
[2022-05-31] MEDS: methylPREDNISolone Sodium Succinate 125 MG/2 ML SDV IM ONE (13:20)
[2022-05-31 13:50] LABS: CORONAVIRUS COVID-19 NAA POSITIVE (NEGATIVE)
== END 2022-05-31 13:42 | disposition home or self-care (01) ==
LOC: JP.ED 12:30
DX: U07.1 COVID-19 (principal); J20.8 Acute bronchitis due to other specified organisms; J44.1 Chronic obstructive pulmonary disease with (acute) exacerbation; I25.2 Old myocardial infarction; I25.10 Atherosclerotic heart disease of native coronary artery without angina pectoris; I11.0 Hypertensive heart disease with heart failure; I50.9 Heart failure, unspecified; E11.40 Type 2 diabetes mellitus with diabetic neuropathy, unspecified; E66.9 Obesity, unspecified; Z72.0 Tobacco use; Z88.8 Allergy status to other drugs, medicaments and biological substances; Z79.01 Long term (current) use of anticoagulants; Z95.1 Presence of aortocoronary bypass graft; Z86.73 Personal history of transient ischemic attack (TIA), and cerebral infarction without residual deficits; Z79.84 Long term (current) use of oral hypoglycemic drugs; Z79.51 Long term (current) use of inhaled steroids; Z79.82 Long term (current) use of aspirin; Z68.32 Body mass index [BMI] 32.0-32.9, adult
CPT/HCPCS: 0241U; 96372; 99284; J2930

== ENCOUNTER 2022-06-02 09:35 | Emergency (ER) | payer MEDICARE ==
[2022-06-02 09:48] VITALS: BP 142/58; PULSE 88
[2022-06-02 11:00] LABS: ESTIMATED GFR 71 mL/min (>60); TROPONIN I HIGH SENSITIVITY 11.7 pg/mL (<=60.3)
[2022-06-02] MEDS ORDERED: Sodium Chloride 0.9% 10 ML Syringe FLUSH PRN (11:21)
[2022-06-02] MEDS ORDERED: Sodium Chloride 0.9% 1,000 ML IV SCH (11:30)
[2022-06-02] MEDS ORDERED: Sodium Chloride 0.9% 75 ML IV ONE (11:33)
[2022-06-02] MEDS ORDERED: Iopamidol 755 Mg/ML 100 ML Bottle IV ONE (11:33)
[2022-06-02] MEDS ORDERED: Sodium Chloride 0.9% 10 ML Syringe FLUSH ONE (11:33)
[2022-06-02] MEDS ORDERED: Albuterol/Ipratropium 3.0-0.5 MG/3 ML Neb Soln NEB ONE (12:03)
== END 2022-06-02 14:34 | disposition home or self-care (01) ==
LOC: JP.ED 09:35
DX: U07.1 COVID-19 (principal); J44.9 Chronic obstructive pulmonary disease, unspecified; I25.10 Atherosclerotic heart disease of native coronary artery without angina pectoris; I11.0 Hypertensive heart disease with heart failure; I50.9 Heart failure, unspecified; E78.00 Pure hypercholesterolemia, unspecified; E11.40 Type 2 diabetes mellitus with diabetic neuropathy, unspecified; E66.9 Obesity, unspecified; Z86.73 Personal history of transient ischemic attack (TIA), and cerebral infarction without residual deficits; Z88.0 Allergy status to penicillin; Z88.8 Allergy status to other drugs, medicaments and biological substances; Z79.02 Long term (current) use of antithrombotics/antiplatelets; Z79.899 Other long term (current) drug therapy; Z79.84 Long term (current) use of oral hypoglycemic drugs; Z79.82 Long term (current) use of aspirin; Z72.0 Tobacco use; Z68.31 Body mass index [BMI] 31.0-31.9, adult
CPT/HCPCS: 36415; 71045; 71275; 80053; 81001; 83605; 83880; 84145; 84484; 85025; 85379; 87040; 93005; 94640; 96360; 99285; J3490; J7030; Q9967; 93010; 99284; J7620

== ENCOUNTER 2022-07-15 19:24 | Emergency (ER) | payer MEDICARE ==
[2022-07-15] MEDS ORDERED: methylPREDNISolone Sodium Succinate 125 MG/2 ML SDV IM ONE (20:08)
[2022-07-15 21:11] VITALS: BP 162/85; PULSE 100
== END 2022-07-15 20:30 | disposition home or self-care (01) ==
LOC: JP.ED 19:24
DX: J44.9 Chronic obstructive pulmonary disease, unspecified (principal); I25.10 Atherosclerotic heart disease of native coronary artery without angina pectoris; I11.0 Hypertensive heart disease with heart failure; I50.9 Heart failure, unspecified; E78.00 Pure hypercholesterolemia, unspecified; Z88.8 Allergy status to other drugs, medicaments and biological substances; Z88.0 Allergy status to penicillin; Z79.02 Long term (current) use of antithrombotics/antiplatelets; Z79.84 Long term (current) use of oral hypoglycemic drugs; Z79.899 Other long term (current) drug therapy; Z79.82 Long term (current) use of aspirin; Z95.1 Presence of aortocoronary bypass graft
CPT/HCPCS: 96372; 99284; J2930

== ENCOUNTER 2023-02-23 08:43 | Emergency (ER) | payer MEDICARE, OTHER ==
[2023-02-23 08:53] VITALS: BP 163/75; PULSE 96
[2023-02-23] MEDS ORDERED: methylPREDNISolone Sodium Succinate 40 MG/1 ML SDV IM ONE (09:04)
== END 2023-02-23 09:24 | disposition home or self-care (01) ==
LOC: JP.ED 08:43
DX: J44.1 Chronic obstructive pulmonary disease with (acute) exacerbation (principal); I11.0 Hypertensive heart disease with heart failure; I50.9 Heart failure, unspecified; I25.10 Atherosclerotic heart disease of native coronary artery without angina pectoris; E78.00 Pure hypercholesterolemia, unspecified; K21.9 Gastro-esophageal reflux disease without esophagitis; E11.40 Type 2 diabetes mellitus with diabetic neuropathy, unspecified; F17.210 Nicotine dependence, cigarettes, uncomplicated; Z79.82 Long term (current) use of aspirin; Z79.84 Long term (current) use of oral hypoglycemic drugs; Z79.899 Other long term (current) drug therapy; Z95.1 Presence of aortocoronary bypass graft; Z90.49 Acquired absence of other specified parts of digestive tract; Z88.8 Allergy status to other drugs, medicaments and biological substances; Z88.0 Allergy status to penicillin
CPT/HCPCS: 96372; 99284; J2920